=== PATIENT | female | born 1985 | race Caucasian/White ===

== ENCOUNTER 2021-10-05 23:15 | Emergency (ER) | payer OTHER ==
[~2021-10-05 23:15] MED LIST: NEURONTIN400 MG PO
[2021-10-06 00:54] LABS: BASOPHIL 0.8 % (0-2); EOSINOPHIL 3.4 % (0-5); HCT 38.7 % (37.0-47.0); HGB 12.7 g/dl (12.5-16.0); LYMPHOCYTE 30.5 % (15-48); MCH 27.7 pg (25.0-31.0); MCHC 32.8 g/dL (32.0-36.0); MCV 84.5 fL (78.0-100.0); MONOCYTE 6.6 % (0-12); MPV 11.3 fL (6.0-9.5); NEUTROPHIL 58.5 % (41-80); NRBC 0; PLT 141 K/uL (150-400); RBC 4.58 M/uL (4.20-5.40); RDW 18.3 % (11.5-14.0); WBC 8.3 K/uL (4.0-10.5)
[2021-10-06 01:02] LABS: INR 1.27 (0.9-1.2); PROTHROMBIN TIME 15.5 SECONDS (11.9-13.9)
[2021-10-06 01:03] LABS: PTT 34.9 SECONDS (24.9-34.6)
[2021-10-06 01:11] LABS: BILIRUBIN NEGATIVE (NEGATIVE); BLOOD NEGATIVE Ery/uL (NEGATIVE); CLARITY CLEAR (CLEAR); COLOR YELLOW (YELLOW); GLUCOSE (U) NORMAL (NORMAL); LEUKOCYTES NEGATIVE Leu/uL (NEGATIVE); NITRITE NEGATIVE (NEGATIVE); PROTEIN NEGATIVE (NEGATIVE); SPECIFIC GRAVITY <=1.005 (1.001-1.030); UROBILINOGEN 0.2 mg/dL (0.2-1.0); pH 6.5 (5.0-9.0)
[2021-10-06 01:15] LABS: ALKALINE PHOSHATASE 146 U/L (46-116); ALT 31 U/L (14-59); AST 35 U/L (15-37); BILIRUBIN - TOTAL 0.6 mg/dL (0.2-1.0); BUN 5 mg/dL (7-18); BUN/CREAT RATIO (CALC) 7.9 RATIO; CHLORIDE 109 mmol/L (98-107); CO2 (BICARBONATE) 24 mmol/L (21-32); CREATININE 0.63 mg/dL (0.51-0.95); GLOBULIN (CALCULATION) 3.8 g/dL; GLUCOSE 101 mg/dL (74-106); POTASSIUM 3.6 mmol/L (3.5-5.1); TOTAL PROTEIN 6.8 g/dL (6.4-8.2)
[2021-10-06 01:16] LABS: ACETAMINOPHEN (TYLENOL) < 2.0 ug/mL (10.0-30.0)
[2021-10-06 01:17] LABS: ECSTASY (MDMA) NEGATIVE (NEGATIVE); MARIJUANA (THC) POSITIVE (NEGATIVE); METHADONE NEGATIVE (NEGATIVE)
[2021-10-06 01:18] LABS: AMPHETAMINES NEGATIVE (NEGATIVE); BARBITURATES NEGATIVE (NEGATIVE); OPIATES NEGATIVE (NEGATIVE); OXYCODONE NEGATIVE (NEGATIVE)
== END 2021-10-06 17:49 | disposition other institution (70) ==
LOC: FER 23:15
PROVIDERS: Internal Medicine
DX: R45.851 Suicidal ideations (principal); F10.10 Alcohol abuse, uncomplicated; K74.60 Unspecified cirrhosis of liver; T74.91XA Unspecified adult maltreatment, confirmed, initial encounter; F17.210 Nicotine dependence, cigarettes, uncomplicated; Z20.822 Contact with and (suspected) exposure to COVID-19; Z28.310 Unvaccinated for COVID-19; Y90.6 Blood alcohol level of 120-199 mg/100 ml
CPT/HCPCS: 36415; 80053; 80305; 81003; 82140; 85025; 85610; 85730; 93005; 99285; G0480; U0002